=== PATIENT | male | born 1970 | race Caucasian/White ===

== ENCOUNTER 2021-05-05 19:50 | Emergency (ER) | payer OTHER ==
[~2021-05-05] VITALS: Ht 182.9 cm; Wt 79.4 kg
== END 2021-05-05 23:43 | disposition home or self-care (01) ==
LOC: ER 19:50
DX: S40.011A Contusion of right shoulder, initial encounter (principal); V49.88XA Car occupant (driver) (passenger) injured in other specified transport accidents, initial encounter; Y93.89 Activity, other specified; Y92.413 State road as the place of occurrence of the external cause; Y99.8 Other external cause status; S10.83XA Contusion of other specified part of neck, initial encounter